=== PATIENT | male | born 1955 | race Caucasian/White ===

== ENCOUNTER 2025-06-08 13:26 | Outpatient (CLI) | payer MEDICARE, OTHER, SELFPAY ==
--- NOTE | ~2025-06-08 | PE_ITS ---
EXAMINATION: PET_PETPSMAST_PT DATE: 06/08/2025 15:40 INDICATION: Prostatic cancer TECHNIQUE: 5.376 mCi of Illucix Ga-[id number]) was administered i.v. Low dose computed tomography (CT) images were acquired from the base of the brain to the base of the brain to the proximal thighs for attenuation correction and anatomic localization. Positron emission tomography (PET) images were acquired in the same distribution beginning 65 minutes after injection. Images including fused PET/CT images were reconstructed in axial, coronal, and sagittal planes. Automated exposure control technique was employed. The dose-length product was 1195.84mGy-cm. COMPARISON: None FINDINGS: Head/neck: Typical pattern of symmetric physiologic increased activity in the lacrimal, parotid and submandibular glands as well as along the mucosa of the nasal and oral cavities, pharynx and hypopharynx. No pathologically enlarged cervical lymphadenopathy or suspicious foci of increased uptake in the visualized head or neck. Chest: No suspicious pulmonary nodules or pleural effusion. Heart size is normal. No pericardial effusion. Calcified left hilar lymph nodes consistent with old granulomatous disease. There is a normal sized 9 x 7 mm subcarinal lymph node with increased PSMA activity with maximal SUV of 10.1 suspicious for metastatic disease. There is additional small focus of mild uptake with maximal SUV of 4.1 position at the left hilum without evident radiologic correlate, potentially an additional smaller lymph node. Abdomen/pelvis/proximal thighs: Physiologic renal accumulation and excretion of activity in the kidneys, bladder and along portions of ureters. Postoperative change of prior prostatectomy. There appears be some asymmetric soft tissue thickening at the anterior base of the bladder without definitive increased asymmetric activity however assessment is limited by the immediately adjacent high excreted urine activity in the bladder. Normal degree and slightly heterogenous pattern of increased uptake throughout the liver and spleen without radiologic correlate or dominant PSMA avid lesion. The gallbladder, pancreas and bilateral adrenal glands are normal. Moderate uptake scattered throughout the bowels with typical duodenal and proxim al jejunal predominance and without radiologic correlate, also likely physiologic. Prominent diverticulosis along the descending and sigmoid colon without adjacent inflammatory stranding to suggest diverticulitis. Normal appendix. Postoperative change of prior right inguinal hernia mesh repair. Suggestion of additional umbilical hernia mesh repair. No other abnormal foci of increased uptake or pathologically enlarged lymphadenopathy in the abdomen, pelvis or proximal thighs. Musculoskeletal: There is some likely extravasated activity with skin contamination at the right antecubital fossa. No suspicious lytic, blastic or abnormally PSMA avid bone lesions. IMPRESSION: 1. Prominent increased uptake in the subcarinal lymph node and mild uptake at the left hilum potentially an additional lymph node which is concerning for metastatic disease. 2. Suggestion of some asymmetric wall thickening at the anteroinferior bladder near the prostatectomy bed without definitive activity however assessment is limited by the large decompressed state of the bladder and the level of activity in the excreted urine. This could be artifact of the decompressed bladder, residual prostatic tissue, scarring or potentially locally recurrent disease. Reviewed, dictated and finalized at location A. IMPRESSION: 1. Prominent increased uptake in the subcarinal lymph node and mild uptake at t he left hilum potentially an additional lymph node which is concerning for meta static disease. 2. Suggestion of some asymmetric wall thickening at the anteroinferior bladder near the prostatectomy bed without definitive activity however assessment is li mited by the large decompressed state of the bladder and the level of activity in the excreted urine. This could be artifact of the decompressed bladder, resi dual prostatic tissue, scarring or potentially locally recurrent disease.
--- OUTSIDE RECORDS SUMMARY | 2025-06-08 13:32 | XMS_ITS | Encounter Summary ---
Author Organization [facility] Health Address [address] [facility] [place] [address] Care Team Providers Care Bread Stacker Name Role Phone Usman Romano MD Primary Care Provider [phone] Chris Shelton MD Unavailable Unavailable Usman Romano MD Unavailable [phone] Marcia Sam Unavailable [phone] Encounter Details Date Type Department Care Team (Late st Contact Info) Description 04/14/2025 Results Follow-Up [facility] - Family Medicine [address] [address] Jose Gifford DO [address] [address] Social History Tobacco Use Types Packs/Day Years Used Date Smoking Tobacco: Never Smokeless Tobacco: Never Alcohol Use Standard Drinks/Week Comments Yes 0 (1 standard drink = 0.6 oz pur e alcohol) AUDIT-C Answer Date Recorded Frequency of Alcohol Consumption Monthly or less 09/26/2020 Average Number of Drinks 1 or 2 020 Frequency of Binge Drinking Never 09/13 PHQ-2 Answer Date Recorded Patient Health Questionnaire-2 Score 0 10/16/2024 Sex and Gender Information Value Date Recorded Sex Assigned at Male 03/27/2021 2:55 PM CDT Legal Sex Male 6:17 AM ADVANCED DEVELOPER Gender Identity Male 03/27/2021 2:55 PM CDT Sexual Orientation Straight 03/27/2021 2: 55 PM CDT documented as of this encounter Plan of Treatment Upcoming Encounters Date Type Department Care Team (Late st Contact Info) Description 10/22/2025 11:00 AM ADVANCED DEVELOPER Office Visit [facility] - Family Medicine [address] [facility] [address] [place] [phone] Usman Romano MD [address] [address] documented as of this encounter Visit Diagnoses Not on filedocumented in this encounter Care Teams Bread Stacker Relationship Specialty Start Date End Date Usman Romano MD PCP - General Family Medicine 07/03/19 Usman Romano MD [address] [address] PCP - Attributed-MSSP 02/11/25 [place] [address], [address] [id number] Urology 07/17/19 Marcia Sam Care Coordination Specialist Care Management 05/17/25 05/17/25 documented as of this encounter
--- OUTSIDE RECORDS SUMMARY | 2025-06-08 13:33 | XMS_ITS | Encounter Summary ---
Author Organization [facility] Address [address] [place] [address] Care Team Providers Care Compliance Field Technician Name Role Phone Usman Romano MD Primary Care Provider [phone] Chris Shelton MD Unavailable Unavailable Usman Romano MD Unavailable [phone] Encounter Details Date Type Department Care Team (Late st Contact Info) Description 05/26/2025 Results Follow-Up [facility] [address] [place] [address] Jules Johns PA-C [address] [address] Social History Tobacco Use Types Packs/Day Years [...] Date Recorded Patient Health Questionnaire-2 Score 0 04/20/2025 Sex and Gender Information Value Date Recorded Sex Assigned at Male 03/27/2021 2:55 PM CDT Legal Sex Male 6: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 Gender Identity Male 03/27/2021 2:55 PM CDT Sexual Orientation Straight 03/27/2021 2: 55 PM CDT documented as of this encounter Plan of Treatment Upcoming Encounters Date Type Department Care Team (Late st Contact Info) Description 10/22/2025 11:00 AM COAL AND ASH SUPERVISOR Office Visit [facility] - Family Medicine [address] [phone] Usman Romano MD [address] [phone] documented as of this encounter Visit Diagnoses Not on filedocumented in this encounter Care Teams Compliance Field Technician Relationship Specialty Start Date End Date Usman Romano MD PCP - General Family Medicine 07/03/19 Usman Romano MD [address] [phone] PCP - Attributed-MSSP 02/11/25 [place] [id number], [address] [phone] Urology 07/17/19 documented as of this encounter
--- OUTSIDE RECORDS SUMMARY | 2025-06-08 13:33 | XMS_ITS | Clinical Summary ---
Author Organization [facility] Address [address] [place] [address] Care Team Providers Care Edge Grinder Name Role Phone Usman Romano MD Primary Care Provider [phone] Gregorio Santiago MD Unavailable [phone] Allergies Active Allergy Reactions Criticality Noted Date Comments Adhesive Redness,Rash Medium 04/13/2020 Medications ibuprofen (ADVIL,MOTRIN) 800 mg tablet Take 1 tablet (800 mg total) by mouth every 6 (six) hours as needed for pain Active amLODIPine-harish zepriL (LOTREL 5-10) 5-10 mg per capsule Take 1 capsule by mouth every morning Active calcium carbonate (CALCIUM 600 ORAL) Take 1 tablet by mouth 2 (two) times a day Active clobetasoL (TEMOVATE) 0.05 % ointment Apply 1 application topically 2 (two) times a day as needed Active atorvastatin (LIPITOR) 10 mg tablet Take 1 tablet (10 mg total) by mouth nightly Active cefadroxil (DURICEF) 500 mg capsule Take 1 capsule (500 mg total) by mouth as needed (rash) 4 Active cholecalciferol 400 unit capsule Take 1 tablet/capsule (400 Units total) by mouth every morning Active pantoprazole DR (PROTONIX) 40 mg EC tablet Take 1 tablet (40 mg total) by mouth every morning 4 Active aspirin 325 mg enteric coated tablet Take 1 tablet (325 mg total) by mouth every morning Active vitamin B complex with folic acid tablet Take 1 tablet by mouth every morning 400 mcg Active docusate sodium (COLACE) 100 mg capsuleIndicati ons:constipatio n Take 1 capsule (100 mg total) by mouth 2 (two) times a day 60 capsule 4 Active Active Problems Problem Noted Date Diagnosed Date Hyperlipidemia 08/06/2024 Pre-diabetes 08/06/2024 History of DVT (deep vein thrombosis) 06/14/2020 GERD (gastroesophageal reflux disease) 0 Hiatal hernia 06/14/2020 Osteoarthrosis 06/14/2020 Prostate cancer 04/13/2020 Hypertension 07/21/2019 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 Resolved Problems Problem Noted Date Diagnosed Date Resolved Date Postoperative incisional hernia 09/08/2024 09/21/2024 Recurrent incisional hernia 08/06/2024 09/21/2024 Non-recurrent inguinal herni a of right side without obstruction or gangrene 01/15/2022 02/23/20 Umbilical hernia without obs truction and without gangrene 01/15/2022 02/22/2022 Immunizations Immunization Administration Dates Next Due Influenza, Quad, Adjuvantated, Intramuscular 04/2020 Pfizer SARS-CoV-2 Monovalent Vaccination (12+ Yrs) PURPLE 10/11/2021 Pneumococcal Conjugate PCV 13 10/03/2020 Pneumococcal Polysaccharide PPV23 10/11/2021 ZOSTER Recombinant 04/15/2019,02/10/2019 Surgical History Surgery Date Site/Laterality Comments VASECTOMY 10/14/1984 - 10/13/1985 BACK SURGERY 02/11/2007 - 03/13/2007 Lumbosacral HAMSTRING RELEASE 04/13/2017 - 05/13/2017 Right Postop right calf thrombophlebitis LAPAROSCOPIC RETROPUBIC PROSTATECTOMY 06/14/2020 - 07/13/2020 Robotic assisted UMBILICAL HERNIA REPAIR 02/07/[address] patch INGUINAL HERNIA REPAIR 02/07/2022 Right Direct, Prolene Hernia System LAPAROSCOPIC INCISIONAL / UMBILICAL / VENTRAL HERNIA REPAIR 09/08/2024 Robotic assisted 10 x 15 cm Ventralight echo 2 mesh, SCOTTY Medical History Medical History Date Comments History of DVT (deep vein thrombosis) 06/14/2020 Also 01/2007 Hypertension 07/21/2019 GERD (gastroesophageal reflux disease) 06/14/2020 Hiatal hernia 06/14/2020 Osteoarthritis 06/14/2020 Prostate cancer (HCC) 04/13/2020 Family History Medical History Relation Name Comments Hypertension Mother Hernia Neg Hx Relation Name Status Comments Father Mother Social History Tobacco Use Types Packs/Day Years Used Date Smoking Tobacco: Never Passive Smoke Exposure: Never Smokeless Tobacco: Never Tobacco Cessation:Counseling Given: Not Answered Alcohol Use Standard Drinks/Week Comments Not Currently 0 (1 standard drink = 0.6 oz pur e alcohol) AUDIT-C Answer Date Recorded Q1: How often do you have a drink containing alc ohol? Monthly or less 08/20/2024 Q2: How many drinks containi ng alcohol do you have on a typical day when you are drinking? 1 or 2 08/20/2024 Q3: How often do you have si x or more drinks on one occasion? Never 08/20/2024 Personal Safety Answer Date Recorded Have you ever been in or are you currently in a harmful physical or emotional relationship or is someone making you feel afraid or unsafe? Denies 09/08/2024 Sex and Gender Information Value Date Recorded Sex Assigned at Not on file Legal Sex Male 5:27 PM HEARING HEALTHCARE PRACTITIONER Gender Identity Not on file Sexual Orientation Not on file Occupation Industry Job Start Date Job End Date Not on file Not on file Not on file Not on file Obstetrics History Last Filed Vital Signs Vital Sign Reading Time Taken Comments Blood Pressure 131/84 11/16/2024 10:28 AM HEARING HEALTHCARE PRACTITIONER Pulse 73 11/16/2024 10:28 AM HEARING HEALTHCARE PRACTITIONER Temperature 36.9 C (98.4 F) 11/16/2024 10:28 AM HEARING HEALTHCARE PRACTITIONER Respiratory Rate 18 09/09/2024 11:3 1 AM HEARING HEALTHCARE PRACTITIONER Oxygen Saturation 95% 09/09/2024 11: 31 AM HEARING HEALTHCARE PRACTITIONER Inhaled Oxygen Concentration - - Weight 97.4 kg (214 lb 12.8 oz) 025 10:28 AM HEARING HEALTHCARE PRACTITIONER Height 177.8 cm (5' 10) 11/16/2024 10: 28 AM HEARING HEALTHCARE PRACTITIONER Body Mass Index 30.82 11/16/2024 10:28 AM HEARING HEALTHCARE PRACTITIONER Plan of Treatment Health Maintenance Due Date Last Done Comments Colon Cancer Screening-Colonoscopy 1955 Depression Screening 1955 Hepatitis C Screening 1955 DTaP/Tdap/Td Vaccine (1 - Tdap) 1965 Hepatitis B Screening 1972 Well Visit 65+ 2019 Covid-19 Vaccine ( season) 2024 10/11/2021, 01/07/2021, 12/17/2020 Influenza Vaccine (#1) 2025 10/16/2024, 2019 Fall Risk Assessment 09/09/2025 09/09/2024 Zoster Vaccine Completed 04/15/2019, 02/10/2019 Pneumococcal vaccine 65+ Completed 10/11/2021, 09/14 Medical Devices Implanted Type Area Auctioneer Tobacco Device Identifier Shelf Expiration Date Model / Serial / Lot [employer]/C R Bard Ventralex St Sepra Sorbaflex 2.5in Spring Open Bioresorbable [id number] - Snone - [id number] Implanted:Qty: 1 on 02/07/2022 by Gregorio Santiago MD at [facility] Mesh N/A: Umbilical [employer] Bard 07/11/2023 [id number] / NONE / [id number] [employer] End[employer] Surgery Prolene 3 15/16in .75in 4 15/16inx2 5/32inx.5in Soft Knit Extend Phse - Snone - [id number] Implanted:Qty: 1 on 02/07/2022 by Gregorio Santiago MD at [facility] Mesh Right: Groin [employer] End[employer] Surgery 10/13/2026 PHSE / NONE / [id number] [employer] R Bard Mesh Surgical Ventralight St Echo 2 Ellipse L15 Cm X W10 Cm [id number] - [id number] Implanted:Qty: 1 on 09/08/2024 by Gregorio Santiago MD at [facility] Mesh N/A: Abdomen [employer] Bard [id number] 01/08/2026 [id number] / / [id number] Insurance [place] [employer] [facility]ICARE [facility] Advance Directives For more information, please contact: [phone] * Full Code (Latest Code Status on File) Date Activated Date Inactivated Comments 09/08/2024 12:36 PM 09/09/2024 10:55 PM * Full Code Date Activated Date Inactivated Comments 06/17/2020 9:06 PM 06/19/2020 4:20 PM Care Teams Edge Grinder Relationship Specialty Start Date End Date Usman Romano MD PCP - General 04/13/20 Gregorio Santiago MD Consulting Physician General Surgery 02/07/22
--- OUTSIDE RECORDS SUMMARY | 2025-06-08 13:33 | XMS_ITS | Clinical Summary ---
Author Organization [facility] Address [address] [place] [address] Care Team Providers Care Shearing Machine Feeder Name Role Phone Usman Romano MD Primary Care Provider [phone] Chris Shelton MD Unavailable Unavailable Usman Romano MD Unavailable [phone] Source Comments [facility],non-owned Affiliates and Associated Physician Practices is amultiple site organization consisting of ambulatory clinics and hospital sitesin [place], [place], [place] and [place]. This disclosure is being madepursuant to the Care Everywhere program and may not contain all information available regarding this patient. Last updated 18.[facility] Allergies Active Allergy Reactions Criticality Noted Date Comments Adhesive Sensitivity Rash Medium 04/13/2020 Medications * Be aware that medications may not be up to date on this document. Alwaysverify current medications with the patient. aspirin (ASPIRIN) 325 MG tablet Take 1 (one) tablet by mouth once daily Active calcium carbonate (CALTRATE) 600 MG tablet Take 1 (one) tablet by mouth 2 times daily Active clobetasol (Temovate) 0.05 % ointmentIndication s:Familial benign chronic pemphigus Apply to affected area 2 times daily as needed 45 g 3 2 Active vitamin D3 (Cholecalciferol) 10 MCG (400 UNIT) tablet Take 1 (one) tablet by mouth once daily Active B Complex Vitamins (VITAMIN B COMPLEX PO) Take 1 capsule by mouth once daily Active amLODIPine-benazep ril (Lotrel) 5-10 MG capsuleIndications :Essential hypertension TAKE 1 CAPSULE DAILY 90 capsule 3 4 Active atorvastatin (Lipitor) 10 MG tabletIndications: Mixed hyperlipidemia TAKE 1 TABLET DAILY 90 tablet 3 4 Active ibuprofen (Motrin) 800 MG tabletIndications: Primary osteoarthritis involving multiple joints TAKE 1 TABLET THREE TIMES A DAY NEEDED FOR PAIN 90 tablet 3 5 Active pantoprazole EC (Protonix) 40 MG tabletIndications: Gastroesophageal reflux disease without esophagitis Take 1 (one) tablet by mouth once daily 90 tablet 3 5 Active cefadroxil (Duricef) 500 MG capsuleIndications :Jaw pain Take 1 (one) capsule by mouth 2 times daily for 7 days 14 capsule 5 06/04/20 25 Active Problems Problem Noted Date Diagnosed Date GERD (gastroesophageal reflux disease) 0 Hiatal hernia 06/14/2020 History of DVT (deep vein thrombosis) 06/14/2020 Osteoarthrosis 06/14/2020 Prostate cancer 04/13/2020 Hypertension 07/21/2019 BPH with elevated PSA 07/21/2019 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 Pre-diabetes Hyperlipidemia Resolved Problems Problem Noted Date Diagnosed Date Resolved Date Bone cancer 08/18/2021 04/03/2022 Encounters Date Type Department Care Team Description 05/28/2025 Orders Only [address] [address] Usman Romano MD Jaw pain 05/28/2025 Nurse Triage [facility] Medicine [address] [address] Usman Romano MD Swelling Gland 05/26/2025 Results Follow-Up [facility] [address] [place] [address] Jules Johns PA-C 05/17/2025 Patient Outreach [facility] - Care Coordination [address] [place] [address] Marcia Sam Outreach Preventive Care 04/20/2025 11:00 AM CDT Office Visit [facility] Family Medicine [address] [phone] Usman Romano MD Medicare annual wellness visit, subsequent (Primary Dx); Primary osteoarthritis involving multiple joints; Gastroesophageal reflux disease without esophagitis; Prostate cancer (HCC); Primary hypertension; Pre-diabetes 04/15/2025 Refill [facility] [address] [address] Usman Romano MD Refill Request 04/14/2025 Results [facility] [address] [address] Jose Gifford DO 04/12/2025 Orders Only [address] [address] Usman Romano MD Mixed hyperlipidemia ; Essential hypertension; Pre-diabetes; Family history of hemochromatosis 04/12/2025 Telephone [facility] [address] [address] Usman Romano MD Order from Last 3 Months Immunizations Immunization Administration Dates Next Due Vidder primary monoval ent 12+ yr 0.3mL Purple cap 10/11/2021,01/07/2021,12/17/2020 INFLUENZA VACCINE, ADJUVANTE D, QUADR. (FLUAD QUADRIVALENT; 65Y+) (AIIV4) 10/02/2021,09/19/2020 INFLUENZA VACCINE, ADJUVANTE D, TRIV. (FLUAD TRIVALENT; 65Y+) (AIIV3) 10/16/2024 PNEUMOCOCCAL PPSV23 10/11/2021 Pneumococcal Pcv13 Conj 10/03/2020 Zoster Hzv Vacc Recombinant Inj Im 04/15/2019, Family History Medical History Relation Name Comments COPD - Chronic Obstructive Pulmonary Disease Father CVA Mother Relation Name Status Comments Father Mother Social [...] PM CDT Legal Sex Male 6:17 AM BEER COOLER Gender Identity Male 03/27/2021 2:55 PM CDT Sexual Orientation Straight 03/27/2021 2: 55 PM CDT Last Filed Vital Signs Vital Sign Reading Time Taken Comments Blood Pressure 123/82 04/20/2025 11:09 AM CDT Pulse 70 04/20/2025 11:09 AM CDT Temperature 36.6 C (97.8 F) 04/20/2025 11:09 AM CDT Respiratory Rate 18 04/10/2024 11:22 AM CDT Oxygen Saturation 98% 04/20/2025 11:09 AM CDT Inhaled Oxygen Concentration - - Weight 96.4 kg (212 lb 9.6 oz) 04/20/2025 11:09 AM CDT Height 177.8 cm (5' 10) 04/20/2025 11:09 AM CDT Body Mass Index 30.5 04/20/2025 11:09 AM CDT Plan of Treatment Upcoming Encounters Date Type Department Care Team (Late st Contact Info) Description 10/22/2025 11:00 AM BEER COOLER Office Visit [facility] - Family Medicine [address] [place] [address] [address] [place] [address] Usman Romano MD [address] [place] [phone] Health Maintenance Due Date Last Done Comments COLOGUARD (AGES 45-75) - COLON CA SCREENING 1955 CT COLONOGRAPHY - COLON CA SCREENING 1955 FIT - COLON CA SCREENING 1955 FLEX SIG - COLON CA SCREENING 1955 HEPATITIS C SCREENING 06/15/1972 DTAP/TDAP/TD VACCINES (1 - Tdap) 1973 INFLUENZA VACCINE (#1) 2025 , 10/02/2021, 09/19/2020 MEDICARE AWV 12 MONTHS 04/20/2026 04/20/2025, 04/10/2024, 04/02/2023 COVID-19 VACCINE ( season) 2026 10/11/2021, 01/07/2021, 12/17/2020 Postponed from 06/14/2024 (Patient Refused) SCREENING FOR DIABETES 04/13/2028 , 04/13/2025, 11/11/2024, Additional history exists Respiratory Syncytial Virus (RSV) Vaccine Pt: or over 60 yrs (1 - 1-dose 75+ series) 2029 COLON MONITORING 10/23/2033 10/23/2023, 07/2024, 10/23/2023 COLONOSCOPY - COLON CA SCREENING 10/23/2033 10/23/2023, 10/23/2023, 10/23/2023, Additional history exists Colorectal Cancer Screening 10/23/2033 ZOSTER VACCINE Completed 04/15/2019, 02/10/2019 PNEUMOCOCCAL VACCINE 50+ Completed 10/11/2021, 09/14 DEPRESSION SCREENING Completed 10/16/2024, 04/10/2024, 04/02/2023, Additional history exists HEPATITIS B VACCINE Aged Out No longe r eligible based on patient's age to complete this topic HIB VACCINE Aged Out No longer eligi ble based on patient's age to complete this topic HPV VACCINE Aged Out No longer eligi ble based on patient's age to complete this topic MENINGOCOCCAL (Group B) VACCINE SHARED DECISION-MAKING Aged Out No longer eligible based on patient's age to complete this topic MENINGOCOCCAL GROUPS A/C/Y/W VACCINE Aged Out No longer eligible based on patient's age to complete this topic Procedures Procedure Name Priority Date/Time Associated Diagnosis Comments LAB RESULTS ORDER 05/25/2025 LAB RESULTS ORDER 04/14/2025 HEMOCHROMATOSIS MUTATION PANEL Routine 04/13/2025 10:17 AM CDT Family history of hemochromatosis CBC W AUTO DIFFERENTIAL Routine 04/13/2025 10:17 AM CDT Mixed hyperlipidemia Essential hypertension LIPID PROFILE REFLEX LDL DIRECT Routine 04/13/2025 10:17 AM CDT Mixed hyperlipidemia Essential hypertension HEMOGLOBIN A1C Routine 04/13/2025 10:17 AM CDT Pre-diabetes COMPREHENSIVE METABOLIC PANEL Routine 04/13/2025 10:17 AM CDT Mixed hyperlipidemia Essential hypertension ENDOSCOPY, COLON, DIAGNOSTIC Routine 10/23/2023 9:18 AM BEER COOLER from Last 3 Months or Most Recently Relevant to Health Maintenance Results * LAB RESULTS ORDER (05/25/2025) Only the most recent of2 resultswithin the time period is included. 05/25/2025 Narrative 05/25/2025 Ordered by an unspecified provider. us Scanned Document LAB - THERAPEUTIC DRUG MONITORI NG ORDERABLES Final Result * LIPID PROFILE REFLEX LDL DIRECT (04/13/2025 10:17 AM CDT) Cholesterol 157 100 - 199 mg/dL [facility] INSURANCE BILL Triglycerides 103 0 - 149 mg/dL [facility] INSURANCE BILL HDL Cholesterol 50 >39 mg/dL [facility] INSURANCE BILL VLDL Calculated 19 5 - 40 mg/dL [facility] INSURANCE BILL LDL Calculated 88 0 - 99 mg/dL [facility] INSURANCE BILL Cholesterol/HDL Ratio 3.1 0.0 - 5.0 ratio [facility] INSURANCE BILL Comment: T. Chol/HDL Ratio Men Women 1/2 Avg.Risk 3.4 3.3 Avg.Risk 5.0 4.4 2X Avg.Risk 9.6 7.1 3X Avg.Risk 23.4 11.0 LDL/HDL Ratio 1.8 0.0 - 3.6 ratio [facility] INSURANCE BILL Comment: LDL/HDL Ratio Men Women 1/2 Avg.Risk 1.0 1.5 Avg.Risk 3.6 3.2 2X Avg.Risk 6.2 5.0 3X Avg.Risk 8.0 6.1 Blood BLOOD SPECIMEN / Unknown 04/13/2025 10:17 AM CDT 04/13/2025 Narrative [facility] INSURANCE BILL - 04/14/2025 10:10 AM CDT Performed at: - [facility] [address] [place], [place] [id number] Music Director: Clayton Enrique PhD, Phone: [phone] us Usman Romano MD LAB - CHEMISTRY ORDERABLES Fin al Result [facility] INSURANCE BILL [address] [place] [address] * HEMOCHROMATOSIS MUTATION PANEL (04/13/2025 10:17 AM CDT) Hereditary Hemochromatosis Comment [facility] INSURANCE BILL Comment: Result: c.845G>A (p.Stt061Xcr) - Detected, heterozygous c.187C>G (p.Rtn14Wcf) - Not Detected c.193A>T (p.Dfj25Igx) - Not Detected Not associated with increased risk to develop clinical symptoms of Hereditary Hemochromatosis. In symptomatic individuals, other causes of iron overload should be evaluated. See Additional Information and Comments. Additional Clinical Information: Hereditary hemochromatosis (HFE related) is an autosomal recessive iron storage disorder. Patients may have a genetic diagnosis of hereditary hemochromatosis and never show clinical symptoms. Clinical symptoms typically appear between 40 to 60 years in males and after menopause in females. Signs and symptoms may include organ damage, primarily in the liver, risk for hepatocellular carcinoma, diabetes, and heart disease due to iron accumulation. Life expectancy may be decreased in individuals who develop cirrhosis. Treatment for clinically symptomatic individuals may include therapeutic phlebotomy. Liver transplant may be used to treat end stage liver failure. For preventive care, monitoring for iron overload is recommended for patients who are homozygous for c.845G>A (p.Pve013Xgt) and have yet to experience clinical symptoms. Comments: The most common HFE variants associated with hereditary hemochromatosis are c.845G>A (p.Ouz600Nws), c.187C>G (p.Mcp27Cyc), c.193A>T (p.Tiq47Yzc). While patients homozygous for c.845G>A (p.Bhl756Nbz) are the most likely to present clinical symptoms, less than 10% develop clinically significant iron overload with tissue and organ damage. Genetic counseling is recommended to discuss the potential clinical implications of positive results, as well as recommendations for testing family members. Genetic Coordinators are available for health care providers to discuss results at [phone] Test Details: Three variants analyzed: c.845G>A (p.Xvh981Myd), commonly referred to as C282Y c.187C>G (p.Raf87Vcn), commonly referred to as H63D c.193A>T (p.Cyb33Yre), commonly referred to as S65C Methods/Limitations: DNA Analysis of the HFE gene (NM_[id number]) was performed by PCR amplification followed by restriction enzyme digestion analyses. Results must be combined with clinical information for the most accurate interpretation. Molecular-based testing is highly accurate, but as in any laboratory test, diagnostic errors may occur. False positive or false negative results may occur for reasons that include genetic variants, blood transfusions, bone marrow transplantation, somatic or tissue-specific mosaicism, mislabeled samples, or erroneous representation of family relationships. This test was developed and its performance characteristics determined by [facility] system. It has not been cleared or approved by the Food and Drug Administration. References: Ulises BR, Zaidi PC, Radha KV, Pedro LW, Kristi ; [place] [employer]. Diagnosis and management of hemochromatosis: 2011 practice guideline by the [place] [employer] the [employer] Liver Diseases. Hepatology. 2010;54(1):328-43. doi: 10.1002/hep.39474. PMID: 98470519; PMCID: [id number]. Piyush G, Genet P, Nicholas DW, Elicia H, Aliza O, Cristóbal S, I, Morteza M, Jenn S. [facility] best practice guidelines for the molecular genetic diagnosis of hereditary hemochromatosis (HH). Eur J Hum [place]iana. 2016 Jan;24(4):479-95. doi: 10.1038/ejhg.2015.128. Epub 2014Apr 20. PMID: 93668046; PMCID: [id number]. Reviewed By Comment [facility] INSURANCE BILL Comment:Romy Barbosa, PhD FA CMG Blood BLOOD SPECIMEN / Unknown 04/13/2025 10:17 AM CDT 04/13/2025 Narrative [facility] INSURANCE BILL - 04/19/2025 11:10 AM CDT Performed at: [facility] [address] [place], [place] [id number] Music Director: Lora Moses [facility], Phone: [phone] Usman Romano MD LAB - CHEMISTRY ORDERABLES Fin al Result Performing Organization Address [facility] de Phone Number [facility] INSURANCE BILL [address] [place] [address] * (ABNORMAL) HEMOGLOBIN A1C (04/13/2025 10:17 AM CDT) Hemoglobin A1c 6.3(H) 4.8 - 5.6 % [facility] INSURANCE BILL Comment: Prediabetes: 5.7 - 6.4 Diabetes: >6.4 Glycemic control for adults with diabetes: <7.0 Blood BLOOD SPECIMEN / Unknown 04/13/2025 10:17 AM CDT 04/13/2025 Narrative [facility] INSURANCE BILL - 04/14/2025 7:09 AM CDT Performed at: [address] [id number] Music Director: Clayton Enrique PhD, Phone: [phone] Usman Romano MD LAB - CHEMISTRY ORDERABLES Fin al Result Performing Organization Address [facility] de Phone Number [facility] INSURANCE BILL [address] [place] [address] * (ABNORMAL) CBC WITH DIFFERENTIAL (04/13/2025 10:17 AM CDT) WBC 4.7 3.4 - 10.8 x10E3/uL [facility] INSURANCE BILL RBC 4.48 4.14 - 5.80 x10E6/uL [facility] INSURANCE BILL Hemoglobin 14.0 13.0 - 17.7 g/dL [facility] INSURANCE BILL Hematocrit 44.1 37.5 - 51.0 % [facility] INSURANCE BILL MCV 98(H) 79 - 97 fL [facility] INSURANCE BILL MCH 31.3 26.6 - 33.0 pg [facility] INSURANCE BILL MCHC 31.7 31.5 - 35.7 g/dL [facility] INSURANCE BILL RDW 13.6 11.6 - 15.4 % [facility] INSURANCE BILL Platelet Count 223 150 - 450 x10E3/uL [facility] INSURANCE BILL Granulocytes % 68 Not Estab. % [facility] INSURANCE BILL Lymphocytes % 20 Not Estab. % [facility] INSURANCE BILL Monocytes % 9 Not Estab. % [facility] INSURANCE BILL Eosinophils % 3 Not Estab. % [facility] INSURANCE BILL Basophils % 0 Not Estab. % [facility] INSURANCE BILL Granulocytes Absolute 3.1 1.4 - 7.0 x10E3/uL [facility] INSURANCE BILL Lymphocytes Absolute 1.0 0.7 - 3.1 x10E3/uL [facility] INSURANCE BILL Monocytes Absolute 0.4 0.1 - 0.9 x10E3/uL [facility] INSURANCE BILL Eosinophils Absolute 0.1 0.0 - 0.4 x10E3/uL [facility] INSURANCE BILL Basophils Absolute 0.0 0.0 - 0.2 x10E3/uL [facility] INSURANCE BILL Immature Granulocytes 0 Not Estab. % [facility] INSURANCE BILL Immature Granulocytes Absolute 0.0 0.0 - 0.1 x10E3/uL [facility] INSURANCE BILL Blood BLOOD SPECIMEN / Unknown 04/13/2025 10:17 AM CDT 04/13/2025 Narrative [facility] INSURANCE BILL - 04/14/2025 7:09 AM CDT Performed at: [address] [place] [address] [address] [place], [place] [id number] Music Director: Clayton Enrique PhD, Phone: [phone] us Usman Romano MD LAB - HEMATOLOGY ORDERABLES Fi nal Result [facility] INSURANCE BILL [address] [place] [address] * (ABNORMAL) COMPREHENSIVE METABOLIC PANEL (04/13/2025 10:17 AM CDT) [facility] Glucose 108(H) 70 - 99 mg/dL [facility] INSURANCE BILL BUN 18 8 - 27 mg/dL [facility] INSURANCE BILL Creatinine 0.93 0.76 - 1.27 mg/dL [facility] INSURANCE BILL eGFR by CKD-EPI 88 >59 mL/min/1.7 3 [facility] INSURANCE BILL BUN/Creatinine Ratio 19 10 - 24 [facility] INSURANCE BILL Sodium 142 134 - 144 mmol/L [facility] INSURANCE BILL Potassium 4.7 3.5 - 5.2 mmol/L [facility] INSURANCE BILL Chloride 103 96 - 106 mmol/L [facility] INSURANCE BILL CO2 24 20 - 29 mmol/L [facility] INSURANCE BILL Calcium 9.5 8.6 - 10.2 mg/dL [facility] INSURANCE BILL Protein Total 6.8 6.0 - 8.5 g/dL [facility] INSURANCE BILL Albumin 4.2 3.9 - 4.9 g/dL [facility] INSURANCE BILL Globulin Total 2.6 1.5 - 4.5 g/dL [facility] INSURANCE BILL Bilirubin Total 0.5 0.0 - 1.2 mg/dL [facility] INSURANCE BILL Alkaline Phosphatase 74 44 - 121 IU/L [facility] INSURANCE BILL AST 27 0 - 40 IU/L [facility] INSURANCE BILL ALT 23 0 - 44 IU/L [facility] INSURANCE BILL Blood BLOOD SPECIMEN / Unknown 04/13/2025 10:17 AM CDT 04/13/2025 Narrative [facility] INSURANCE BILL - 04/14/2025 11:11 AM CDT Performed at: [address] [place] [id number] Music Director: Clayton Enrique PhD, Phone: [phone] us Usman Romano MD LAB - CHEMISTRY ORDERABLES Fin al Result Performing Organization Address City/State/[facility] Co de Phone Number [facility] INSURANCE BILL [address] [place] [address] * ENDOSCOPY, COLON, DIAGNOSTIC (10/23/2023 9:18 AM BEER COOLER) Report Endoscopy POC _ Patient Name: Corry Llanes Procedure Date: 10/23/2023 9:18 AM Date of : 1955 Admit Type: Outpatient Age: 68 Room: ROOM 2 Gender: Male Attending MD: Ramone Franklin MD, [id number] _ Procedure: Colonoscopy Indications: Hematochezia Providers: Ramone Franklin MD, Zulma Ribeiro RN, Collin Mukherjee CRNA (Anesthesia Staff) Medicines: Propofol per Anesthesia Complications: No immediate complications. _ Estimated Blood Loss: Estimated blood loss: none. Procedure: Pre-Anesthesia Assessment: - Prior to the procedure, a History and Physical was performed, and patient medications and allergies were reviewed. The patient's tolerance of previous anesthesia was also reviewed. The risks and benefits of the procedure and the sedation options and risks were discussed with the patient. All questions were answered, and informed consent was obtained. Prior Anticoagulants: The patient has taken no anticoagulant or antiplatelet agents except for aspirin. ASA Grade Assessment: II - A patient with mild systemic disease. After reviewing the risks and benefits, the patient was deemed in satisfactory condition to undergo the procedure. After I obtained informed consent, the scope was passed under direct vision. Throughout the procedure, the patient's blood pressure, pulse, and oxygen saturations were monitored continuously. The Colonoscope was introduced through the anus and advanced to the terminal ileum. The terminal ileum and the appendiceal orifice were photographed. The quality of the bowel preparation was good. Findings: The terminal ileum appeared normal. Multiple diverticula were found in the sigmoid colon and descending colon. A few small angiodysplastic lesions were found in the rectum. These were characteristic of radiation proctitis. Coagulation for bleeding prevention using argon plasma was successful. Hemorrhoids were found. The exam was otherwise without abnormality. _ Impression: - The examined portion of the ileum was normal. - Diverticulosis in the sigmoid colon and in the descending colon. - A few colonic angiodysplastic lesions. Treated with argon plasma coagulation (APC). - Hemorrhoids. - The examination was otherwise normal. - No specimens collected. Recommendation: - High fiber diet. - Continue present medications. - No recommendation at this time regarding repeat colonoscopy. - Patient has a contact number available for emergencies. The signs and symptoms of potential delayed complications were discussed with the patient. Return to normal activities tomorrow. Written discharge instructions were provided to the patient. Procedure Code(s): --- Professional --- 16221, Colonoscopy, flexible; with control of bleeding, any method --- Technical --- 48197, Colonoscopy, flexible; with control of bleeding, any method Diagnosis Code(s): --- Professional --- K64.9, Unspecified hemorrhoids K55.20, Angiodysplasia of colon without hemorrhage K92.1, Melena (includes Hematochezia) K57.30, Diverticulosis of large intestine without perforation or abscess without bleeding --- Technical --- K64.9, Unspecified hemorrhoids K55.20, Angiodysplasia of colon without hemorrhage K92.1, Melena (includes Hematochezia) K57.30, Diverticulosis of large intestine without perforation or abscess without bleeding CPT copyright 2020 [employer]. All rights reserved. The codes documented in this report are preliminary and upon professional nursing assistant review may be revised to meet current compliance requirements. ___ Ramone Franklin MD 10/23/2023 10:06:13 AM This report has been signed electronically. Number of Addenda: 0 Note Initiated On: 10/23/2023 9:18 AM [facility] 10/23/2023 9:18 AM BEER COOLER Ramone Franklin MD GI PROCEDURE ORDERABLES Edit ed Result - Final [facility] ENDOSCOPY from Last 3 Months or Most Recently Relevant to Health Maintenance Insurance MEDICARE [facility] Care Teams Shearing Machine Feeder Relationship Specialty Start Date End Date Usman Romano MD PCP - General Family Medicine 07/03/19 Usman Romano MD [address] [address] PCP - Attributed-MSSP 02/11/25 [place] [id number], [address] [id number] Urology 07/17/19
--- OUTSIDE RECORDS SUMMARY | 2025-06-08 13:33 | XMS_ITS | Clinical Summary ---
Author Organization [facility] Address [address] 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 Active pantoprazole (PROTONIX) 40 mg Tablet, Delayed Release (E.C.) Take 40 mg by mouth daily. 10/23/2023 Active ibuprofen (MOTRIN) 800 mg tablet Take 800 mg by mouth. 02/05/2023 Active clobetasoL (TEMOVATE) 0.05 % Ointment Apply to affected area 2 times daily as needed. 10/02/2022 Active cholecalciferol (VITAMIN D3) 400 unit Tablet Take 400 Units by mouth daily. Active calcium as carbonate (CALTRATE) 1,500 mg (600 mg elemental) Tablet Take 600 mg by mouth daily. Active atorvastatin (LIPITOR) 10 mg tablet Take 10 mg by mouth daily. 07/29/2023 Active aspirin (ECOTRIN EC) 325 mg Tablet, Delayed Release (E.C.) Take 325 mg by mouth daily. Active amLODIPine-harish zepril (LOTREL) 5-10 mg capsule Take 1 Capsule by mouth daily. 07/25/2023 Active Encounters Date Type Department Care Team Description 06/01/2025 External Device Data [facility] Provider, Abstract 03/30/2025 External Device Data [facility] Provider, Abstract from Last 3 Months Social History Tobacco Use Types Packs/Day Years Used Date Smoking Tobacco: Never Smokeless Tobacco: Never Alcohol Use Standard Drinks/Week Comments Not Currently 0 (1 standard drink = 0.6 oz pur e alcohol) very seldom Feeling Safe Answer Date Recorded Are you in a relationship wi th someone who hurts you emotionally and/or physically? No 11/13/2024 Sex and Gender Information Value Date Recorded Sex Assigned at Not on file Legal Sex Male 3:59 AM [employer] Gender Identity Not on file Sexual Orientation Not on file Last Filed Vital Signs Vital Sign Reading Time Taken Comments Blood Pressure 132/83 11/13/2024 10:11 AM [employer] Pulse 76 11/13/2024 10:11 AM [employer] Temperature 36.5 C (97.7 F) 11/13/2024 10:11 AM [employer] Respiratory Rate 18 11/13/2024 10:11 AM [employer] Oxygen Saturation 98% 11/13/2024 10:11 AM [employer] Inhaled Oxygen Concentration - - Weight 93 kg (205 lb) 11/13/2024 10:11 AM [employer]WARE VERIF[employer] Height 177.8 cm (5' 10) 11/13/2024 10:11 AM [employer] Body Mass Index 29.41 11/13/2024 10:11 AM [employer] VER[employer] Plan of Treatment Health Maintenance Due Date Last Done Comments Pre-Diabetes and Diabetes Screening 1955 DTAP/TDAP/TD VACCINES (1 - Tdap) 1973 FIT-DNA Q 3 years 1999 FIT/FOBT Q 1 year 1999 Flex Sig/CT Colonography Q 5 years 1999 RSV VACCINE (60+ or ) (1 - Risk 60-74 years 1-dose series) 2014 COVID-19 Vaccine ( season) 2024 10/11/2021, 01/07/2021, 12/17/2020 INFLUENZA VACCINE (#1) 2025 , 10/02/2021, 09/19/2020 COLORECTAL SCREENING 10/23/2033 10/23/2023 Colorectal Cancer Screening 10/23/2033 ZOSTER VACCINE Completed 04/15/2019, 02/10/2019 PNEUMOCOCCAL VACCINE 50+ YEARS Completed 10/11/2021 , 10/03/2020 Insurance MEDICARE PART A AND B [facility] [place] [id number] 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
== END 2025-06-08 13:27 | disposition home or self-care (01) ==
PROVIDERS: PCP Family Medicine; Visit Provider Urology
DX: C61 Malignant neoplasm of prostate (principal)
CPT/HCPCS: 78815; A9596